=== PATIENT | male | born 1935 | race Two or more races ===

== ENCOUNTER 2018-01-24 10:26 | Emergency (ER) | payer OTHER, MEDICAID ==
[~2018-01-24] VITALS: Ht 167.6 cm; Wt 74.8 kg
[2018-01-24 11:05] VITALS: BP 109/87
== END 2018-01-24 11:48 | disposition home or self-care (01) ==
LOC: ER 10:26
DX: M25.562 Pain in left knee (principal); M25.561 Pain in right knee; G89.29 Other chronic pain; V43.52XA Car driver injured in collision with other type car in traffic accident, initial encounter; Y93.89 Activity, other specified; Y99.8 Other external cause status; Y92.488 Other paved roadways as the place of occurrence of the external cause